=== PATIENT | male | born 1975 | race Two or more races ===

== ENCOUNTER 2018-09-10 20:03 | Emergency (ER) | payer OTHER ==
[~2018-09-10] VITALS: Ht 188 cm; Wt 95.4 kg
[2018-09-10 20:09] VITALS: BP 144/83
[2018-09-10] MEDS ORDERED: DIPH,PERTUSS(ACELL),TET VAC/PF 0.5 ML IM-VACC ONE ×2 (20:30→21:05)
== END 2018-09-10 21:15 | disposition home or self-care (01) ==
LOC: ED 21:09
DX: S61.216A Laceration without foreign body of right little finger without damage to nail, initial encounter (principal); W45.8XXA Other foreign body or object entering through skin, initial encounter; Y93.89 Activity, other specified; Y92.89 Other specified places as the place of occurrence of the external cause; Y99.0 Civilian activity done for income or pay
CPT/HCPCS: 29130; 90471; 90715; 99283